=== PATIENT | male | born 1990 ===

== ENCOUNTER 2017-01-25 08:58 | Outpatient (CLI) | payer BC ==
--- NOTE | 2017-01-25 10:37 | Diagnostic Imaging Report ---
Indication: PAIN, palpable abnormality Technique: Grayscale images of left lower quadrant palpable abnormality Comparison: None Findings: In the area of palpable abnormality in left lower quadrant, no evidence of hernia or mass demonstrated. Impression: Negative. No findings to suggest etiology of apparent pain and palpable abnormality in left lower quadrant. If there is still high clinical suspicion, consider CT for more sensitive and specific characterization
== END 2017-01-25 10:58 | disposition home or self-care (01) ==
LOC: ULS 08:58
DX: R10.9 Unspecified abdominal pain (principal)
CPT/HCPCS: 76705